=== PATIENT | female | born 1995 | race Caucasian/White ===

== ENCOUNTER 2017-01-06 12:02 | Emergency (ER) | payer BC ==
[2017-01-06 13:21] LABS: AUTOMATED NEUTROPHIL # 7.3 TH/MM3 (1.8-7.7); BASOPHIL % 0.5 % (0.0-2.0); EOSINOPHIL % 0.4 % (0.0-4.0); HEMATOCRIT 30.3 % (35.0-46.0); HEMO FLAGS DIFF FINAL; LYMPH % 14.9 % (9.0-44.0); LYMPHOCYTE # 1.4 TH/MM3 (1.0-4.8); MEAN CELL VOLUME 83.2 FL (80.0-100.0); MEAN CORPUSCULAR HEMOGLOBIN 27.5 PG (27.0-34.0); MEAN CORPUSCULAR HGB CONC 33.1 % (32.0-36.0); MONO % 7.2 % (0.0-8.0); PLATELET COUNT 270 TH/MM3 (150-450); RED BLOOD COUNT 3.64 MIL/MM3 (4.00-5.30); RED CELL DISTRIBUTION WIDTH 12.6 % (11.6-17.2); WHITE BLOOD COUNT 9.4 TH/MM3 (4.0-11.0)
--- NOTE | 2017-01-06 13:36 | MB ---
cc: SOLE SMITH DATE OF CONSULTATION 01/06/2017 REASON FOR VISIT Extreme weakness and dizziness. HISTORY OF PRESENT ILLNESS This is a 21-year-old white female para 0-0-1-0 who woke up this morning and was very dizzy and very weak. She got scared and called the office. Because of the severity of the symptoms, we asked her to come to the emergency room for evaluation. She tried to eat a little sandwich and did not feel very good after several bites and then she stopped. Otherwise, she has been having some mild dizziness on and off. She is drinking water. She is not drinking any electrolytes and I think she is a little bit on the dehydration side. REVIEW OF SYSTEMS She has no headaches, no scotoma. She is dizzy, that has passed. She has had on-off periods for some time, but it has been mostly mild. Her weakness is gone as well and may have been related to the extreme dizziness when she awoke this morning. She reports normal bowel and bladder function. No constipation or diarrhea. Good micturition pattern. PHYSICAL EXAM Her physical exam reveals a well-developed, well-nourished female in no acute distress resting comfortably in the bed. HEENT: Normocephalic, atraumatic. NECK: Supple. Trachea is in the midline. No thyromegaly or adenopathy. CHEST: Clear to auscultation. HEART: Regular rate and rhythm without a significant murmur. ABDOMEN: The abdomen is gravid and nontender. The fundus is nontender. The heart tones are present. PELVIC: The pelvic exam is deferred. EXTREMITIES: No clubbing, cyanosis or edema. ASSESSMENT/PLAN 1. Intrauterine at 20+ weeks with dizziness and weakness this morning. I feel this is most likely because she is dehydrated. Her skin turgor is poor. Her lips are dry and we talked a lot about keeping well hydrated and hydrating with Gatorade or some electrolytes. She denies any fevers or chills. She denies any problems with rupture of membranes or bleeding. The baby is doing fine. 2. Choroid plexus cyst of the brain. We will rescan her in six weeks. I reassured her that this is fine. R. MD JUNIOR Nelson/DJL /1:00 PM /1:24 PM
[2017-01-06 13:37] LABS: BACTERIA, URINE MOD /hpf; BLOOD, URINE NEG (NEG); COMMENT (UR) CULTURE INDICATED; CULTURE IF INDICATED CULTURE INDICATED; GLUCOSE,URINE NEG (NEG); KETONE, URINE NEG (NEG); MUCUS URINE FEW /lpf (OCC); NITRITE,URINE NEG (NEG); PH, URINE 7.5 (5.0-8.5); SQUAMOUS EPITHELIAL CELL URINE 39 /hpf (0-5); TRANSITIONAL EPI CELLS, URINE <1 /hpf; URINE COLOR LIGHT-YELLOW (YELLW/STRAW)
[2017-01-06 13:47] LABS: ANION GAP 8 MEQ/L (5-15); AST (GOT) 14 U/L (15-37); BICARBONATE 24.4 MEQ/L (21.0-32.0); BLOOD UREA NITROGEN 5 MG/DL (7-18); CHLORIDE 107 MEQ/L (98-107); GLOMERULAR FILTRATION RATE 153 ML/MIN (>89); POTASSIUM 3.5 MEQ/L (3.5-5.1); SODIUM (NA) 139 MEQ/L (136-145)
[2017-01-06 13:50] LABS: ALKALINE PHOSPHATASE 66 U/L (45-117); ALT (GPT) 17 U/L (10-53); TOTAL BILIRUBIN ADULT 0.2 MG/DL (0.2-1.0)
--- NOTE | 2017-01-06 14:26 | PD ---
HPI Chief Complaint dizziness, vomiting Date Seen: January 06, 2017 Travel History International Travel<30 Days: No Contact w/Intl Traveler<30Days: No History of Present Illness HPI Ms. Alston is a 21 yo G1 at 21 6/[address] Mcrae who presents with symptoms of vomiting and dizziness this morning. Patient states that vomiting began this morning; she awoke with nausea and tried to eat; she was unable to keep food down. Patient also reports that she felt that her head was spinning, especially when she opened her eyes after closing them. Patient does not report other symptoms. No fever/chills, shortness of breath, dysuria, or leg swelling reported. Patient reports having normal movement and does not report vaginal bleeding or loss of vaginal fluid. Patient reports normal movement. Patient reports unremarkable history and denies past medical history. : 1 History Past Medical History Medical History: Denies Significant Hx Obstetric History Obstetric History G1 Past Surgical History Surgical History: No Previous Surgery Social History Alcohol Use: No Tobacco Use: No Substance Abuse: No Review of Systems General / Constitutional: No: Fever, Chills Eyes: No: Blurred Vision HENT: Lightheadedness Cardiovascular: No: Chest Pain or Discomfort Respiratory: No: Short of Breath Gastrointestinal: No: Abdominal Pain Genitourinary: No: Dysuria Neurologic: Dizziness, No: Seizures Physical Exam T 97.7 HR 85 BP 107/59 RR 16 Narrative GENERAL: Well-nourished, well-developed patient. SKIN: Warm and dry. HEAD: Normocephalic and atraumatic. EYES: No scleral icterus. No injection or drainage. ENT: No nasal drainage noted. Mucous membranes pink. Airway patent. NECK: Supple, trachea midline. No JVD. CARDIOVASCULAR: Regular rate and rhythm without murmurs, gallops, or rubs. RESPIRATORY: CTAB, normal rate ABDOMEN/GI: Abdomen soft, non-tender, bowel sounds present, no rebound, no guarding Gravid EXTREMITIES: No cyanosis or edema. NEUROLOGICAL: Awake and alert. Motor and sensory function grossly within normal limits. FHT's: FHR 170 bpm Data Data Orders Complete Blood Count With Diff (01/06/17 13:02) Comprehensive Metabolic Panel (01/06/17 13:02) Urinalysis - C+S If Indicated (01/06/17 13:02) Labs Laboratory Tests Test 01/06/17 12:55 White Blood Count 9.4 Red Blood Count 3.64 Hemoglobin 10.0 Hematocrit 30.3 Mean Corpuscular Volume 83.2 Mean Corpuscular Hemoglobin 27.5 Mean Corpuscular Hemoglobin 33.1 Concent Red Cell Distribution Width 12.6 Platelet Count 270 Mean Platelet Volume 7.9 Neutrophils (%) (Auto) 77.0 Lymphocytes (%) (Auto) 14.9 Monocytes (%) (Auto) 7.2 Eosinophils (%) (Auto) 0.4 Basophils (%) (Auto) 0.5 Neutrophils # (Auto) 7.3 Lymphocytes # (Auto) 1.4 Monocytes # (Auto) 0.7 Eosinophils # (Auto) 0.0 Basophils # (Auto) 0.0 CBC Comment DIFF FINAL Differential Comment MDM Medical Record Reviewed: Yes Narrative Course / MDM 21 yo G1 at 21 6/[address] Mcrae -Symptoms of nausea and dizziness this morning -Afebrile with normal PE -Normotensive -Symptoms resolving -FHR 170 Plan: -Will check CBC, CMP, UA Interval: CBC with mild anemia (Hgb 10) CMP unremarkable UA- large leuk esterase, moderate bacteria, WBC 11 Updated Plan: Patient deemed stable for discharge home and follow-up with Dr. Mcrae. Discussed with Dr. Pierre and subsequently Dr. Mcrae: -Patient advised to take OTC iron -Patient advised to call office Tuesday for Urine culture results -Patient will follow-up with Dr. Mcrae 01/11 Patient counselled to return to OB ED with worsening dizziness, persistent vomiting, or other symptoms Diagnosis Diagnosis: Primary Impression: Dizziness Additional Impressions: 21 weeks gestation of Nausea Disposition: 01 DISCHARGE HOME Condition: Stable Referrals: Vitaly Mcrae MD 1 week Patient Instructions: General Instructions Departure Forms: Tests/Procedures, Work Release Enter return to work date: January 08, 2017 Bib Jerry MD R2 January 06, 2017 14:26
== END 2017-01-06 14:44 | disposition home or self-care (01) ==
LOC: HOBED 12:02
DX: O26.892 Other specified pregnancy related conditions, second trimester (principal); R42 Dizziness and giddiness; O23.42 Unspecified infection of urinary tract in pregnancy, second trimester; B96.89 Other specified bacterial agents as the cause of diseases classified elsewhere; Z3A.21 21 weeks gestation of pregnancy
CPT/HCPCS: 59025; 80053; 81001; 85025; 87086

== ENCOUNTER 2017-05-10 10:07 | Inpatient (IN) | payer BC, MEDICAID ==
[~2017-05-10] VITALS: Ht 154.9 cm; Wt 63.0 kg
[2017-05-10] VITALS (10 sets, daily range): BP systolic 101–117; BP diastolic 51–76; PULSE 60–80; RESP 16–20; TEMP 97.6–98.2; O2SAT 97–100
[2017-05-10] MEDS ORDERED: DOCO200C (10:58)
[2017-05-10] MEDS ORDERED: LACTATED RINGER'S 1000 ML INJ 1,000 ML IV ONE (10:58)
--- NOTE | 2017-05-10 11:08 | HHI.HP ---
HPI Chief Complaint Primary for breech presentation Date Seen: May 10, 2017 Travel History International Travel<30 Days: No Contact w/Intl Traveler<30Days: No History of Present Illness HPI Patient is a 22-year-old at 39-4/7 weeks gestation who presents today for primary for breech presentation. She denies any vaginal bleeding or discharge. No gush or leaking of fluid. Positive movement. History Past Medical History Medical History: Denies Significant Hx Obstetric History Obstetric History spontaneous Past Surgical History Surgical History: No Previous Surgery Family History Family History: Negative Social History Alcohol Use: No Tobacco Use: No Substance Abuse: No Allergies-Medications (Allergen,Severity, Reaction): Coded Allergies: Penicillins (Verified Allergy, Unknown, Rash, 05/10/17) pt states she had rash when she was a baby Home Meds Reported Medications Docosahexaenoic Acid ( Dha) 200 Mg Cap, DAILY 05/10/17 Review of Systems Except as stated in HPI: all other systems reviewed are Neg General / Constitutional: No: Fever, Chills Eyes: No: Blurred Vision, Visual changes HENT: No: Headaches Cardiovascular: No: Chest Pain or Discomfort, Palpitations Respiratory: No: Cough, Short of Breath Gastrointestinal: No: Nausea, Vomiting, Abdominal Pain Genitourinary: No: Dysuria, Hematuria, Pelvic Pain, Discharge, Vaginal Bleeding Musculoskeletal: No: Edema Neurologic: No: Headache Psychiatric: No: Substance Abuse Physical Exam Narrative GENERAL: Well-nourished, well-developed patient. SKIN: Warm and dry. HEAD: Normocephalic and atraumatic. EYES: No scleral icterus. No injection or drainage. ENT: No nasal drainage noted. Mucous membranes pink. Airway patent. NECK: Supple, trachea midline. No JVD. CARDIOVASCULAR: Regular rate and rhythm without murmurs, gallops, or rubs. RESPIRATORY: Breath sounds equal bilaterally. No accessory muscle use. ABDOMEN/GI: Abdomen soft, non-tender, bowel sounds present, no rebound, no guarding Gravid to 39 weeks size GENITOURINARY: External Genitalia: intact and normal in appearance Presentation: Breech Membranes: intact Uterine Contractions: none FHT's: Category: I Baseline: 140 Reactive: + Variability: moderate Decels: none EXTREMITIES: No cyanosis or edema. BACK: Nontender without obvious deformity. NEUROLOGICAL: Awake and alert. Motor and sensory grossly within normal limits. Normal speech. Caprini VTE Risk Assessment Caprini VTE Risk Assessment: No/Low Risk (score <= 1) Caprini Risk Assessment Model Point Value = 1 Point Value = 2 Point Value = 3 Point Value = 5 Age 41-60 Minor surgery BMI > 25 kg/m2 Swollen legs Varicose veins or History of unexplained or recurrent spontaneous Oral contraceptives or hormone replacement Sepsis (< 1 month) Serious lung disease, including pneumonia (< 1 month) Abnormal pulmonary function Acute myocardial infarction Congestive heart failure (< 1 month) History of inflammatory bowel disease Medical patient at bed rest Age 61-74 Arthroscopic surgery Major open surgery (> 45 min) Laparoscopic surgery (> 45 min) Malignancy Confined to bed (> 72 hours) Immobilizing plaster cast Central venous access Age >= 75 History of VTE Family history of VTE Factor V Leiden Prothrombin [id number] Lupus anticoagulant Anticardiolipin antibodies Elevated serum homocysteine Heparin-induced thrombocytopenia Other congenital or acquired thrombophilia Stroke (< 1 month) Elective arthroplasty Hip, pelvis, or leg fracture Acute spinal cord injury (< 1 month) Prophylaxis Regimen Total Risk Factor Score Risk Level Prophylaxis Regimen 0-1 Low Early ambulation 2 Moderate Order ONE of the following: *Sequential Compression Device (SCD) *Heparin 5000 units SQ BID 3-4 Higher Order ONE of the following medications: *Heparin 5000 units SQ TID *Enoxaparin/Lovenox 40 mg SQ daily (WT < 150 kg, CrCl > 30 mL/min) *Enoxaparin/Lovenox 30 mg SQ daily (WT < 150 kg, CrCl > 10-29 mL/min) *Enoxaparin/Lovenox 30 mg SQ BID (WT < 150 kg, CrCl > 30 mL/min) AND/OR *Sequential Compression Device (SCD) 5 or more Highest Order ONE of the following medications: *Heparin 5000 units SQ TID (Preferred with Epidurals) *Enoxaparin/Lovenox 40 mg SQ daily (WT < 150 kg, CrCl > 30 mL/min) *Enoxaparin/Lovenox 30 mg SQ daily (WT < 150 kg, CrCl > 10-29 mL/min) *Enoxaparin/Lovenox 30 mg SQ BID (WT < 150 kg, CrCl > 30 mL/min) AND *Sequential Compression Device (SCD) Data Data Vital Signs Reviewed: Yes Orders Orders Admit To Inpatient (05/10/17 ) Code Status (05/10/17 10:58) Vital Signs (Adult) .ON ADMISSION (05/10/17 10:58) Activity Oob Ad Danuta (05/10/17 10:58) Heart (05/10/17 10:58) Urinary Catheter Management SANCHEZ.Q8H (05/10/17 10:58) ^ Preps (05/10/17 10:58) Scd / Giovnay / Foot Pump SANCHEZ.QSHIFT (05/10/17 10:58) ^ Ultrasound For Locatio (05/10/17 10:58) Diet Npo (05/10/17 Lunch) Lactated Ringer's 1000 Ml Inj (Lr 1000 M (05/10/17 10:58) Group B Strep: Negative Assessment/Plan Problem List: (1) Breech presentation ICD Codes: O32.1XX0 - Maternal care for breech presentation, not applicable or unspecified Assessment and Plan 22 year old at 39-4/7 weeks gestation. 1. IUP- Category I tracing, reassuring. 2. Primary for Breech Presentation, breech presentation confirmed by bedside US. 3. GBS negative. 4. Blood type O negative- s/p Rhogam on 02/22, will need Rhogam . Bree Santos Dr., MD, R3 May 10, 2017 11:08
[2017-05-10 11:12] LABS: BASOPHIL % 0.3 % (0.0-2.0); EOSINOPHIL % 0.3 % (0.0-4.0); HEMATOCRIT 33.9 % (35.0-46.0); HEMO FLAGS DIFF FINAL; LYMPH % 27.1 % (9.0-44.0); LYMPHOCYTE # 2.1 TH/MM3 (1.0-4.8); MEAN CELL VOLUME 77.3 FL (80.0-100.0); MEAN CORPUSCULAR HEMOGLOBIN 25.1 PG (27.0-34.0); MEAN CORPUSCULAR HGB CONC 32.5 % (32.0-36.0); MONO % 7.6 % (0.0-8.0); NEUT % 64.7 % (16.0-70.0); PLATELET COUNT 328 TH/MM3 (150-450); RED BLOOD COUNT 4.38 MIL/MM3 (4.00-5.30); RED CELL DISTRIBUTION WIDTH 15.2 % (11.6-17.2); WHITE BLOOD COUNT 7.7 TH/MM3 (4.0-11.0)
[2017-05-10 11:29] LABS: BACTERIA, URINE OCC /hpf; BLOOD, URINE MOD (NEG); COMMENT (UR) CULT NOT INDICATED; CULTURE IF INDICATED CULT NOT INDICATED; GLUCOSE,URINE NEG (NEG); KETONE, URINE NEG (NEG); NITRITE,URINE NEG (NEG); PH, URINE 5.5 (5.0-8.5); RENAL EPITHELIAL CELLS <1 /hpf; SQUAMOUS EPITHELIAL CELL URINE 14 /hpf (0-5); URINE COLOR YELLOW (YELLW/STRAW)
[2017-05-10] MEDS ORDERED: LACTATED RINGER'S 1000 ML INJ 1,000 ML IV SCH ×2 (12:00→18:45)
[2017-05-10] MEDS ORDERED: EPIDURAL-DO NOT ADMINISTER ANTICOAGULANTS PRN (12:30)
[2017-05-10] MEDS ORDERED: CITRIC ACID-SODIUM CITRATE LIQ 30 ML UDC PO SCH (12:30)
[2017-05-10] MEDS ORDERED: EPIDURAL-NO SYSTEMIC NARCOTICS PRN (12:30)
[2017-05-10] MEDS ORDERED: OXYTOCIN 10 UNIT/ML AMP ONE (12:52)
[2017-05-10] MEDS ORDERED: ONDANSETRON HCL 4 MG/2 ML VIAL ONE (13:42)
[2017-05-10] MEDS ORDERED: MORPHINE SULFATE PF 5 MG/10 ML VIAL ONE (13:42)
[2017-05-10] MEDS ORDERED: SIMETHICONE 80 MG CHEWABLE TAB PO PRN (13:45)
[2017-05-10] MEDS ORDERED: ACETAMINOPHEN 325 MG TAB PO PRN (13:45)
[2017-05-10] MEDS ORDERED: DOCUSATE SODIUM 50 MG/SENNA 8.6 MG TAB PO PRN (13:45)
[2017-05-10] MEDS ORDERED: ZOLPIDEM TARTRATE 5 MG TAB PO PRN (13:45)
[2017-05-10] MEDS ORDERED: OXYTOCIN 30 UNITS-500ML PREMIX 500 ML IV ONE (13:45)
[2017-05-10] MEDS ORDERED: SODIUM CHLORIDE 0.9% FLUSH 10 ML FLUSH IV FLUSH PRN (13:45)
[2017-05-10] MEDS ORDERED: ONDANSETRON HCL 4 MG/2 ML VIAL IV PUSH PRN (13:45)
--- NOTE | 2017-05-10 13:50 | PD.OB.DELI ---
Procedure Note Section Procedure Pre Op Diagnosis: (1) 39 weeks gestation of (2) Breech presentation Post Op Diagnosis: (1) Breech presentation (2) 39 weeks gestation of Performed by Dr. Mcrae and Dr. Olivo Procedure: Primary Low Transverse Sec Indication for delivery: malposition (Breech presentation) Previous condition: None Informed consent obtained: For anesthesia, For procedure Confirmed correct: Patient, Procedure, Site, Time-out taken Anesthesia: Spinal Medication prior to procedure: As documented in eMAR Monitoring during procedure: Blood pressure monitoring, hop strainer, Pulse oximetry Urinary catheter: Inserted using sterile technique Sterile preparation: Duraprep Position: Supine with wedge to left side Operative Features Skin Incision: Pfannenstiel Uterine Incision: Low transverse w/knife / blunt ext Membranes Ruptured: Artificially, Appearance of fluid (clear) Presentation: Breech Delivery date: May 10, 2017 Delivery time: 13:01 Delivery of infant: Uneventful Infant: Female One Minute : 8 Five Minute : 9 Weight: 3990g Status of infant: Viable Placenta delivered: Intact Medications: Antibiotics, Oxytocin Estimated blood loss: 750cc Procedure tolerated: Well Maternal Condition: Stable Condition: Stable Bree Olivo MD, R3 May 10, 2017 13:50
--- NOTE | 2017-05-10 13:59 | PD.OP ---
Operative Report Date of Surgery: May 10, 2017 Preoperative Diagnosis: (1) Breech presentation (2) 39 weeks gestation of Postoperative Diagnosis: (1) 39 weeks gestation of (2) Breech presentation Procedure: Low Transverse Section Anesthesia: Spinal Surgeon: Vitaly Mcrae Friction Saw Operator(s): Celsa Bañuelos and Cailin Nava Resident Surgeon: Bree Olivo Operation and Findings: Preoperative Diagnosis: 1. Primary Delivery for Breech Presentation 2. Intrauterine at 39-4/7 weeks gestation Postoperative Diagnosis: 1. Primary Delivery for Breech Presentation 2. Intrauterine at 39-4/7 weeks gestation Procedure Primary low transverse section Anesthesia Spinal Surgeon Vitlay Mcrae MD Co-Surgeon Bree Olivo MD Findings Normal female infant 3990g with Apgars 8 and 9. Normal fallopian tubes, normal ovaries, normal uterus. Complications None. Counts Correct Estimated Blood Loss 750mL Fluids Crystalloids. Disposition The patient tolerated procedure well, went to recovery room in good condition. Procedure in Detail After informed consent was obtained the patient was taken to the operating room where her spinal anesthesia was found to be adequate. A Gay catheter was placed and she was then prepared and draped in the normal sterile fashion in the dorsal supine position with a leftward tilt. A Pfannenstiel skin incision was then made with the scalpel and carried through to the underlying layer of fascia. The fascia was incised in the midline and extended laterally with the Orozco scissors. The incision was then grasped with the Jak clamps, elevated and the underlying rectus muscles dissected off bluntly/sharply with the Orozco scissors. Attention was then turned to the inferior aspect of this incision which, in a similar fashion, was grasped, tented up with the Jak clamps, and the rectus muscles dissected off bluntly/ sharply with the Orozco scissors. The rectus muscles were then in the midline, and the peritoneum identified, tented up, and entered bluntly using manual dissection. The peritoneal incision was then extended superiorly and inferiorly with good visualization of the bladder. A bladder flap was created then the bladder blade was inserted and the lower uterine segment was incised in a transverse fashion with the scalpel. The uterine incision was then extended laterally digitally. The bladder blade was removed then the 's hips were grasped and the buttocks were introduced into the uterine incision before the legs were reduced and delivered one at a time. Each arm was then delivered individually followed by the head. The was delivered atraumatically. Cord clamping was delayed for 45 seconds then the cord was cut and the was handed off the field to the awaiting baby nurse. The placenta was then removed, the uterus exteriorized, and cleared of all clots and debris. The uterine incision was repaired with 0 Vicryl in a running fashion. A second layer of the same suture was used in an imbricating fashion to obtain excellent hemostasis. The abdominal cavity was cleaned with a moist lap and the uterus was replaced into the abdomen. The gutters were cleared of all clots and debris and the hysterotomy site was noted to be hemostatic. The muscle was then reapproximated using 0 Vicryl. The fascia was then reapproximated with 4-0 Monocryl in a running fashion. The skin was closed with 4-0 Vicryl in a subcuticular fashion noting excellent hemostasis. Steristrips were placed along the length of the incision. The patient tolerated the procedure well. Sponge, lap and needle counts were correct times two. The patient was taken to the recovery room in stable condition. Bree Olivo MD, R3 May 10, 2017 13:59
[2017-05-10] MEDS ORDERED: OXYTOCIN 30 UNITS-500ML PREMIX 500 ML ONE (14:48)
[2017-05-10] MEDS ORDERED: KETOROLAC TROMETHAMINE 30 MG/ML (IVP) VIAL ONE (14:57)
[2017-05-10] MEDS ORDERED: EPIDURAL-NALOXONE HCL 0.4 MG/ML AMP IV PRN (16:30)
[2017-05-10] MEDS ORDERED: EPIDURAL-DIPHENHYDRAMINE HCL 50 MG/ML VIAL IV PUSH PRN (16:30)
[2017-05-10] MEDS ORDERED: EPIDURAL-DIPHENHYDRAMINE HCL 50 MG CAP PO PRN (16:30)
[2017-05-10] MEDS ORDERED: KETOROLAC TROMETHAMINE 30 MG/ML (IVP) VIAL IV PUSH ONE (16:45)
[2017-05-10] MEDS ORDERED: SODIUM CHLORIDE 0.9% FLUSH 10 ML FLUSH IV FLUSH SCH (21:00)
[2017-05-10] MEDS ORDERED: OXYTOCIN 30 UNITS-500ML PREMIX 500 ML IV PRN (23:45)
[2017-05-11] MEDS: IBUPROFEN 600 MG TAB PO PRN ×3 (01:18→18:15)
[2017-05-11 01:28] VITALS: BP 109/64; PULSE 81; RESP 18; TEMP 98
[2017-05-11 05:38] VITALS: BP 115/49; PULSE 80; RESP 18; TEMP 98.4
[2017-05-11 05:49] LABS: AUTOMATED NEUTROPHIL # 9.1 TH/MM3 (1.8-7.7); BASOPHIL % 0.2 % (0.0-2.0); EOSINOPHIL % 0.2 % (0.0-4.0); HEMATOCRIT 30.4 % (35.0-46.0); HEMO FLAGS DIFF FINAL; LYMPH % 14.9 % (9.0-44.0); LYMPHOCYTE # 1.8 TH/MM3 (1.0-4.8); MEAN CELL VOLUME 77.4 FL (80.0-100.0); MEAN CORPUSCULAR HEMOGLOBIN 24.8 PG (27.0-34.0); MONO % 8.1 % (0.0-8.0); NEUT % 76.6 % (16.0-70.0); PLATELET COUNT 264 TH/MM3 (150-450); RED BLOOD COUNT 3.93 MIL/MM3 (4.00-5.30); RED CELL DISTRIBUTION WIDTH 15.2 % (11.6-17.2); WHITE BLOOD COUNT 11.8 TH/MM3 (4.0-11.0)
[2017-05-11] MEDS: oxyCODONE/ACETAMINOPHEN 5 MG/325 MG TAB PO PRN ×4 (06:40→20:47)
[2017-05-11 07:40] VITALS: BP 108/56; PULSE 67; RESP 16; TEMP 98.1
[2017-05-11 12:35] VITALS: BP 99/64; PULSE 114; RESP 20; TEMP 98
--- NOTE | 2017-05-11 14:10 | HHI.OB ---
Subjective Post Operative Day: 1 Objective Vitals/I&O Vital Signs Date Time Temp Pulse Resp B/P (MAP) Pulse Ox O2 Delivery O2 Flow Rate FiO2 05/11/17 12:35 98.0 05/11/17 12:35 114 20 99/64 (76) 05/11/17 07:40 67 16 108/56 (73) 05/11/17 07:40 98.1 05/11/17 05:38 98.4 80 18 115/49 (71) 05/11/17 02:18 18 05/11/17 01:28 98.0 81 18 109/64 (79) 05/10/17 22:06 98.2 80 20 106/51 (69) 05/10/17 21:45 98.2 80 20 05/10/17 21:45 106/51 (69) 05/10/17 16:15 106/76 (86) 05/10/17 16:15 98.0 68 18 05/10/17 14:46 60 20 117/62 (80) 98 05/10/17 14:41 97.6 05/10/17 14:33 99 05/10/17 14:32 18 05/10/17 14:32 65 104/66 (79) 05/10/17 14:15 76 05/10/17 14:15 18 101/53 (69) 100 Result Diagram: 05/11/17 0504 Objective Remarks GENERAL: Well-nourished, well-developed patient. CARDIOVASCULAR: Regular rate and rhythm without murmurs, gallops, or rubs. RESPIRATORY: Breath sounds equal bilaterally. No accessory muscle use. ABDOMEN/GI: Abdomen soft, non-tender, bowel sounds present. Incision: Clean, dry and intact with steri strips. Fundus: Firm, non-tender at umbilicus. GENITOURINARY: Light to moderate bleeding. EXTREMITIES: No cyanosis or edema, non-tender, without signs of DVT. Medications and IVs Current Medications Medications (Trade) Dose Ordered Sig/Alla Route Start Time Stop Time Status Last Admin (Bicitra Liq) 30 ml HAZARDOUS SUBSTANCES SCIENTIST PO 05/10/17 12:30 05/14/17 12:29 05/10/17 12:19 Lactated Ringer's 1,000 ml @ 100 mls/hr Q10H IV 05/10/17 18:45 05/11/17 14:44 05/10/17 15:31 Oxytocin 500 ml @ 100 mls/hr UNSCH X1 PRN IV 05/10/17 23:45 05/11/17 23:44 (NS Flush) 2 ml BID IV FLUSH 05/10/17 21:00 (NS Flush) 2 ml UNSCH PRN IV FLUSH 05/10/17 13:45 (Mylicon Chew) 80 mg QID PRN PO 05/10/17 13:45 05/11/17 09:22 (Tylenol) 650 mg Q6H PRN PO 05/10/17 13:45 (Motrin) 600 mg Q6H PRN PO 05/10/17 15:00 05/11/17 11:24 (Percocet 5-325 Mg) 1 tab Q4H PRN PO 05/10/17 13:45 05/11/17 11:23 (Percocet 5-325 Mg) 2 tab Q4H PRN PO 05/10/17 13:45 (Kirsten-Colace) 2 tab Q12H PRN PO 05/10/17 13:45 05/11/17 06:41 (Ambien) 5 mg HS PRN PO 05/10/17 13:45 (M-M-R Ii Inj) 0.5 ml ONCE ONCE SQ 05/11/17 16:00 05/11/17 16:01 (Boostrix Inj) 0.5 ml ONCE ONCE IM 05/11/17 16:00 05/11/17 16:01 (Zofran Inj) 4 mg Q6H PRN IV PUSH 05/10/17 13:45 05/10/17 15:30 (Narcan Inj) 0.4 mg UNSCH PRN IV 05/10/17 16:30 05/11/17 16:29 (Benadryl Inj) 25 mg Q6H PRN IV PUSH 05/10/17 16:30 05/11/17 16:29 (Benadryl) 50 mg Q6H PRN PO 05/10/17 16:30 05/11/17 16:29 Assessment/Plan Problem List: (1) Breech presentation ICD Codes: O32.1XX0 - Maternal care for breech presentation, not applicable or unspecified Status: Resolved (2) S/P primary low transverse ICD Codes: Z98.891 - History of uterine scar from previous surgery Plan: routine (3) Anemia ICD Codes: D64.9 - Anemia, unspecified Plan: will treat with oral iron post Assessment and Plan POD #1 primary c /section for breech pt doing well up to shower without difficulty pain well managed with oral pain medication breast and bottle feeding routine care Discharge Planning consider dc home tomorrow Lelia Lyman May 11, 2017 14:10
--- NOTE | 2017-05-11 14:14 | HHI.DCPOC ---
Discharge Care Plan Diagnosis: (1) Anemia (2) S/P primary low transverse Your Health Problems Are: delivery Report Symptoms to Your Doctor -Temperature above 100.5 degrees -Redness, of incision or excessive or foul smelling drainage -Unusual pain or calf pain -Increased vaginal bleeding -Painful or difficulty urinating -Feelings of extreme sadness or anxiety after 2 weeks Goals to Promote Your Health * To prevent worsening of your condition and complications * To maintain your health at the optimal level Directions to Meet Your Goals Take your medications as prescribed Follow your dietary instruction Follow activity as directed Ensure plenty of rest for recovery Drink fluids for hydration Keep your appointments as scheduled Take your immunizations and boosters as scheduled If your symptoms worsen call your PCP, if no PCP go to Urgent Care Center or Emergency Room Smoking is Dangerous to Your Health. Avoid second hand smoke Call the 24-hour crisis hotline for domestic abuse at Lelia Lyman May 11, 2017 14:14
--- NOTE | 2017-05-11 14:19 | HHI.DS ---
Admission Date May 10, 2017 at 10:07 Discharge Date: May 12, 2017 Admitting Diagnosis term breech presentation Diagnosis: Delivery Date: May 10, 2017 : Primary Reason: breech : Female Brief History Patient is a 22-year-old at 39-4/7 weeks gestation who presents today for primary for breech presentation. She denies any vaginal bleeding or discharge. No gush or leaking of fluid. Positive movement. Hospital Course primary c section anemia routine care Pt Condition on Discharge: Good Discharge Disposition: Discharge Home Discharge Instructions Diet Instructions: As Tolerated, No Restrictions Additional Diet Instructions: Drink at least 8 - 16 oz bottles of water a day Activities You Can Perform: Shower Only-No Bath Activities to Avoid: Prolonged Standing, Strenuous Activity, Sexual Activity Additional Activity Instruc.: No driving until off pain medications Do not lift anything heavier than your baby in an carrier Follow up Referrals: PARLIAMENTARY LIBRARIAN - 1 Week @ [facility] Lelia Lyman May 11, 2017 14:19
[2017-05-11] MEDS ORDERED: IBUP-232 PO (15:31)
[2017-05-11] MEDS ORDERED: MEASLES, MUMPS, RUBELLA VACCINE 0.5 ML VIAL SQ ONE (16:00)
[2017-05-11] MEDS ORDERED: DIPHTH/TETANUS/ACEL PERTUSSIS (BOOSTER) 0.5 ML VIAL/PFS IM ONE (16:00)
[2017-05-11 19:00] VITALS: BP 103/64; PULSE 77; RESP 18; TEMP 97.5
[2017-05-12] MEDS: IBUPROFEN 600 MG TAB PO PRN ×2 (00:38→06:44)
[2017-05-12] MEDS: oxyCODONE/ACETAMINOPHEN 5 MG/325 MG TAB PO PRN ×3 (00:38→11:11)
[2017-05-12 08:00] VITALS: BP 106/67; PULSE 72; RESP 18; TEMP 97.6
== END 2017-05-12 13:32 | disposition home or self-care (01) | DRG 766 ==
LOC: H2EB 10:07 → H1EA 15:16
PROVIDERS: ADMIT Obstetrics & Gynecology; ATTEND Obstetrics & Gynecology
PROC: 10D00Z1 Extraction of Products of Conception, Low, Open Approach (ICD-10-PCS; principal; 2017-05-10)
DX: O32.1XX0 Maternal care for breech presentation, not applicable or unspecified (principal); O99.02 Anemia complicating childbirth; Z37.0 Single live birth; Z3A.39 39 weeks gestation of pregnancy
CPT/HCPCS: 59025; 81001; 85025; 86850; 86900; 86901; 90715; J0690; J1885; J2274; J2405; J2590; J7120